=== PATIENT | female | born 1970 | race Caucasian/White ===

== ENCOUNTER 2017-09-18 09:28 | Emergency (ER) | payer OTHER, MEDICAID ==
[~2017-09-18] VITALS: Ht 162.6 cm; Wt 104.3 kg
--- NOTE | 2017-09-18 09:35 | NUR ---
PRESENTS TO ER C/O ABD PAIN WITH N/V/D X 3 DAYS. PATIENT IS A/O X 4. BREATHING EVEN AND UNLABORED. NO SOB. VITALS STABLE. SAFETY AND COMFORT MEASURES IN PLACE. AWAITING MD ORDERS.
--- NOTE | 2017-09-18 09:50 | NUR ---
NEW IV STARTED ON R HAND, 20 G.
[2017-09-18] MEDS ORDERED: ONDANSETRON HCL/PF 4 MG/2 ML VIAL ONE (09:57)
[2017-09-18] MEDS: ONDANSETRON HCL/PF 4 MG/2 ML VIAL IV ONE (10:01)
--- NOTE | 2017-09-18 10:01 | NUR ---
PATIENT MEDICATED PER MD ORDERS.
[2017-09-18 10:13] LABS: BASOPHILS % (AUTO) 0.8 % (0.0-2.0); EOSINOPHILS # (AUTO) 0.1 /CMM (0.0-0.7); EOSINOPHILS % (AUTO) 2.1 % (0.0-6.0); HEMATOCRIT 36 % (33-45); HEMOGLOBIN 12.4 g/dL (11.5-14.8); LYMPHOCYTES # (AUTO) 1.9 /CMM (0.8-4.8); LYMPHOCYTES % (AUTO) 30.6 % (20.0-44.0); MEAN CORPUSCULAR HEMOGLOBIN 30 PG (26.0-33.0); MEAN CORPUSCULAR HGB CONC 34 g/dl (31.0-36.0); MEAN CORPUSCULAR VOLUME 88 fL (82-100); MONOCYTES # (AUTO) 0.4 /CMM (0.1-1.30); MONOCYTES % (AUTO) 6.9 % (2.0-12.0); NEUTROPHILS # (AUTO) 3.7 /CMM (1.8-8.9); NEUTROPHILS % (AUTO) 59.6 % (43.0-81.0); PLATELET COUNT (AUTO) 196 /CMM (150-450); RDW COEFFICIENT OF VARIATION 12.6 (11.5-15.0); RED BLOOD CELL COUNT(AUTO) 4.16 MIL/uL (4.0-5.2); WHITE BLOOD COUNT (AUTO) 6.1 K/uL (4.3-11.0)
[2017-09-18 10:22] LABS: CALCIUM, SERUM 8.3 mg/dL (8.5-10.1); CREATININE 0.6 mg/dL (0.6-1.3); POTASSIUM 3.5 mmol/L (3.5-5.1)
[2017-09-18 10:23] LABS: BILIRUBIN,URINE Negative (NEGATIVE); BLOOD, URINE Trace-intact Ery/uL (NEGATIVE); COLOR,URINE Yellow (YELLOW); KETONES,URINE Negative (NEGATIVE); LEUKOCYTE ESTERASE ,URINE Small (NEGATIVE); NITRITE, URINE Negative (NEGATIVE); PROTEIN,URINE Negative (NEGATIVE); UGLUCOSE Negative (NEGATIVE); UROBILINOGEN,URINE 0.2 EU/dL (0.2)
[2017-09-18 10:26] LABS: INR 0.94 (0.85-1.15)
[2017-09-18 10:27] LABS: APPEARANCE,URINE SLIGHTLY HAZY (CLEAR)
[2017-09-18 10:28] LABS: ALBUMIN 3.5 g/dL (3.4-5.0); BILIRUBIN,DIRECT 0.1 mg/dL (0.0-0.2); BILIRUBIN,TOTAL 0.6 mg/dL (0.2-1.0); TOTAL PROTEIN, SERUM 7.1 g/dL (6.4-8.2)
[2017-09-18 10:30] LABS: BACTERIA,URINE Few /HPF (None Seen); SQUAMOUS EPITHELIAL CELL,UR Many /HPF (None Seen)
[2017-09-18] MEDS ORDERED: HYDROMORPHONE INJ 0.5 MG/0.5 ML SYRINGE ONE (11:44)
[2017-09-18] MEDS: HYDROMORPHONE 1 MG/1 ML DISP.SYRIN IV ONE (11:51)
[2017-09-18] MEDS ORDERED: IV NS 0.9% 500 ML IV ONE (11:55)
[2017-09-18] MEDS ORDERED: IOHEXOL-300 100 ML VIAL IV ONE (11:55)
[2017-09-18] MEDS ORDERED: CT SWABBABLE VALVE TRANS SET 1 EA INFUS.SET MC ONE (11:55)
--- NOTE | 2017-09-18 11:55 | NUR ---
PATIENT TAKEN TO CT VIA WHEELCHAIR.
--- NOTE | 2017-09-18 12:02 | NUR ---
ASSUMED CARE FROM SUSU SEPULVEDA. PT IS RESTING COMFORTABLY AT THIS TIME AWATING CT ABD
--- NOTE | 2017-09-18 13:28 | NUR ---
PT. VERBALIZED UNDERSTANDING OF AFTERCARE INSTRUCTIONS.Patient discharged to home in stable condition. Written and verbal after care instructions given. Patient verbalizes understanding of instruction.IV removed. Catheter intact and site benign. Pressure and 4x4 applied to site. No bleeding noted.
[2017-09-18 13:29] VITALS: BP 133/84
== END 2017-09-18 13:30 | disposition home or self-care (01) ==
LOC: ER 09:29
DX: K57.30 Diverticulosis of large intestine without perforation or abscess without bleeding (principal); E86.0 Dehydration; R11.10 Vomiting, unspecified; I10 Essential (primary) hypertension; Z88.5 Allergy status to narcotic agent
CPT/HCPCS: 36415; 80048-TC; 80076-TC; 81000-TC; 83690-TC; 84703-TC; 85025-TC; 85730-TC; 87086-TC; 87186-TC; A4606; J2405; J7040; Q9967; Z7610